=== PATIENT | male | born 1955 | race Caucasian/White ===

== ENCOUNTER 2022-04-28 11:03 | Emergency (ER) | payer MEDICARE, MEDICAID, SELFPAY ==
[2022-04-28] VITALS (8 sets, daily range): BP systolic 176–234; BP diastolic 79–116; PULSE 79–84; RESP 18–20; TEMP 36.6–36.8; O2SAT 95–97; BMI 27.3
[2022-04-28 12:59] LABS: Basophils # 0.1 K/mm3 (0-0.2); Basophils % 0.8 % (0.1-2.0); Eosinophils # 0.2 K/mm3 (0.0-0.4); Eosinophils % 2.7 % (0.1-12.0); Hematocrit 47.5 % (42.0-52.0); Hemoglobin 16.4 g/dL (14.1-18.0); Lymphocytes # 1.4 K/mm3 (0.7-4.5); Lymphocytes % 17.2 % (10-50); Mean Corpuscular HGB Conc 34.5 g/dL (31.8-35.4); Mean Corpuscular Hemoglobin 31.4 pg (27.0-31.2); Mean Corpuscular Volume 90.8 fl (80-94); Mean Platelet Volume 8.3 fl (7.4-10.4); Monocytes # 0.4 K/mm3 (0.1-1.0); Monocytes % 5.2 % (1.7-9.3); Neutrophils # 5.8 K/mm3 (1.8-7.8); Neutrophils % 74.2 % (37.0-80.0); Platelet Count 271 K/mm3 (142-424); Red Blood Count 5.23 M/mm3 (4.60-6.20); Red Cell Distribution Width 13.6 % (11.5-17.5); White Blood Count 7.8 K/mm3 (4.8-10.8)
[2022-04-28 13:00] LABS: Chloride 105 mmol/L (98-107)
[2022-04-28 13:01] LABS: Potassium 3.7 mmoL/L (3.5-5.1); Sodium 142 mmol/L (136-145)
[2022-04-28 13:04] LABS: Anion Gap 8.7 mEq/L (5-15); Blood Urea Nitrogen 19 mg/dl (9-20); Calcium 8.8 mg/dl (8.4-10.2); Carbon Dioxide 32 mmol/L (22.0-30.0); Estimated Glomerular Filt Rate 67 ml/min (>60); GFR (African American) 81 ML/MIN (>60); Glucose 148 mg/dl (74-100)
--- NOTE | 2022-04-28 13:14 | CT_ITS ---
PROCEDURE INFORMATION: Exam: CT Abdomen And Pelvis With Contrast Exam date and time: 04/28/2022 1:32 PM Age: 66 years old Clinical indication: Abdominal pain; Generalized; Patient HX: Bladder retention TECHNIQUE: Imaging protocol: Computed tomography of the abdomen and pelvis with contrast. Radiation optimization: All CT scans at this facility use at least one of these dose optimization techniques: automated exposure control; mA and/or kV adjustment per patient size (includes targeted exams where dose is matched to clinical indication); or iterative reconstruction. Contrast material: ISOVUE; Contrast volume: 75 ml; Contrast route: IV; COMPARISON: No relevant prior studies available. FINDINGS: Liver: Normal. No mass. Gallbladder and bile ducts: Surgically absent gallbladder. Pancreas: Normal. No ductal dilation. Spleen: Normal. No splenomegaly. Adrenal glands: Normal. No mass. Kidneys and ureters: 4.2 cm simple right renal cortical cyst. Indeterminate exophytic focus measuring 1.6 cm in right kidney. Otherwise, grossly unremarkable kidneys. Stomach and bowel: U scattered colonic diverticula. Appendix: No evidence of appendicitis. Intraperitoneal space: Unremarkable. No free air. No significant fluid collection. Vasculature: Atherosclerotic calcification of aortoiliac arteries. Lymph nodes: Unremarkable. No enlarged lymph nodes. Urinary bladder: Unremarkable as visualized. Reproductive: Unremarkable as visualized. Bones/joints: Unremarkable. No acute fracture. Soft tissues: Unremarkable. Other findings: Visualized thorax grossly unremarkable. IMPRESSION: No acute intra abdominopelvic findings identified. Indeterminate exophytic focus in right kidney, although possibly representing small cysts. Consider nonurgent sonographic evaluation. Colonic diverticulosis. Otherwise, grossly unremarkable study. COMMENTS: Consistent with the [employer]'s Incidental Findings Committee white paper (J Am Rk Radiol 2018): Any incidental renal lesion less than 1 cm or classified as too small to characterize, or any incidental cystic renal lesion characterized as simple-appearing, is likely benign. No follow-up imaging is recommended for these lesions per consensus recommendations based on imaging criteria.
--- NOTE | 2022-04-28 13:20 | PC.NURSE ---
bladder scanned pt 107ml noted in bladder
[2022-04-28 13:28] LABS: Alanine Aminotransferase 25 U/L (12-78); Albumin Level 4.1 g/dl (3.5-5.0); Alkaline Phosphatase 82 U/L (38-126); Aspartate Amino Transferase 33 U/L (17-59); Bilirubin,Direct 0.3 mg/dl (0.0-0.4); Bilirubin,Indirect 0.4 mg/dL (0.0-0.9); Bilirubin,Total 0.7 mg/dl (0.2-1.3); Bilirubin,Unconjugated 0.3 mg/dL (0.0-1.1); Total Protein,Serum 7.1 g/dl (6.3-8.2)
[2022-04-28 13:56] LABS: Microscopic, Urine URINE MICROSCOPIC (MICROSCOPIC)
[2022-04-28 14:08] LABS: Appearance,Urine CLEAR (Clear); Bilirubin,Urine Negative (Negative); Blood, Urine Negative (Negative); Color,Urine YELLOW (Yellow); Glucose,Urine (UA) Negative (Negative); Ketones,Urine Negative (Negative); Leukocyte Esterase,Urine Negative (Negative); Nitrate,Urine Negative (Negative); PH,Urine 5.5 (5.0-8.5); Protein,Urine Negative (Negative); Specific Gravity, Urine <= 1.005 (1.005-1.030)
[2022-04-28 14:20] LABS: Bacteria,Urine Trace /lpf; Squamous Epithelial Cell,Urine Occasional #/hpf (0-5); WBC,Urine Occasional #/hpf (0-3)
--- NOTE | 2022-04-28 14:21 | HMH.EDGENADL ---
Discharge Plan Disposition Patient Disposition: Home, Self-Care Condition: Good Referrals Follow up/Referrals: Chris Reis [Primary Care Provider] - See instructions Activity Restrictions/Add. Instructions Additional Instructions/Restrictions: All medication as directed. Follow-up PCP soon as possible. Return to ER for fever, chest pain, shortness of breath Clinical Impressions Clinical Impression: Chronic pain Instructions Patient Instructions: DI for Chronic Pain -- Adult Discharge ED Provider: Molina Marie General Adult HPI General Chief complaint: PAIN Stated complaint: trouble walking, kidney pain Time Seen by Provider: 04/28/22 11:44 Mode of Arrival: Wheelchair Source of Information: Patient and Spouse Limitations: No Limitations Description of Symptoms (Recalled from ER Triage Doc. by RN): c/o pelvic and lower back pain, States he has a hard time fully urinating and his urine is dark and has a bad odor, states this has been going on for 30 + years but the last 3 days it has gotten worse. History of Present Illness HPI narrative: 66yo M presents to the emergency department secondary to left greater than right pelvic pain. He reports he has a hard time urinating with dark urine and a foul odor. Ports this is been ongoing for greater than 30 years but is worsened in the past 3 days. Denies fever, fall, trauma, heavy lifting. Reports he was seen at [facility] and they did nothing for him. Related Data Allergies Allergy/AdvReac Type Severity Reaction Status Date / Time No Known Allergies Allergy Verified 04/28/22 14:18 [facility] Disclaimer: The information contained in this section may have been updated after the patient was seen, as this information can be updated by other users. Social History Smoking Status: Unknown if ever smoked alcohol intake: former current occupational status: unemployed Travel in the last 8 weeks: None ROS Obtained: Yes Systems reviewed as appropriate & no additional complaints except as documented Physical Exam General General appearance: alert and in no apparent distress Head Head exam: atraumatic Eye Eye exam: Present normal appearance Neck Neck exam: Present normal inspection and full ROM Chest Chest inspection: Present normal inspection Respiratory Respiratory exam: Present normal lung sounds bilaterally and respiratory distress Cardiovascular Cardiovascular exam: Present regular rate and normal rhythm Abdominal Exam Abdominal exam: Present soft and normal bowel sounds; Absent distention, tenderness, guarding, rebound or rigidity Extremities Exam Extremities exam: Present normal inspection and normal capillary refill Back Exam Back exam: Present normal inspection Neurological Exam Neurological exam: Present alert, oriented X3 and CN II-XII intact Psychiatric Psychiatric exam: Present normal affect Skin Skin exam: Present warm and dry Medical Decision Making Medical Records Medical records reviewed: Yes I reviewed the patient's medical records. Noe Inquiry Pt receiving controlled substance: No Noe was queried for this patient: No Vital Signs: 04/28/22 11:04 04/28/22 13:25 Temperature 97.8 F Temperature Source Oral Pulse Rate [Left Radial] 81 Respiratory Rate 18 Blood Pressure 220/116 H Blood Pressure [Right Arm] 176/109 H Blood Pressure Mean [Right Arm] 131 Blood Pressure Source [Right Arm] Automatic Cuff Blood Pressure Position [Right Arm] Sitting 02 Sat by Pulse Oximetry 96 Oxygen Delivery Method Room Air Lab Data Lab results reviewed: Yes I reviewed the patient's lab results. Lab Results 04/28/22 12:40: WBC 7.8, RBC 5.23, Hgb 16.4, Hct 47.5, MCV 90.8, MCH 31.4 H, MCHC 34.5, RDW 13.6, Plt Count 271, MPV 8.3, Neut % (Auto) 74.2, Lymph % (Auto) 17.2, [place] % (Auto) 5.2, Eos % (Auto) 2.7, Baso % (Auto) 0.8, Neut # (Auto) 5.8, Lymph # (Auto) 1.4, [place] # (A
== END 2022-04-28 15:31 | disposition home or self-care (01) ==
PROVIDERS: Emergency Provider Family Medicine; PCP Family Medicine
DX: R10.2 Pelvic and perineal pain (principal); M54.50 Low back pain, unspecified; G89.29 Other chronic pain
CPT/HCPCS: 74177; 80048; 80076; 81001; 85025; 99285; Q9967

== ENCOUNTER 2022-12-25 11:04 | Emergency (ER) | payer MEDICARE, MEDICAID, SELFPAY ==
--- NOTE | 2022-12-25 11:14 | ECG_ITS ---
APPROVED REPORT Exam: Resting ECG HR:84 bpm ECG Measurements Heart Rate 84 AXES NH 184 P 40 QRSd 98 QRS -20 QT 386 T 64 QTc 427 Conclusion SINUS RHYTHM WITH OCCASIONAL ECTOPIC PREMATURE COMPLEXES NONSPECIFIC T-WAVE ABNORMALITY BORDERLINE ECG UNCONFIRMED REPORT Electronically signed by : Jam Son MD 12/25/2022 19:56:20
[2022-12-25 11:20] VITALS: BP 222/111; PULSE 70; RESP 20; TEMP 36.8; O2SAT 96; BMI 30.5
[2022-12-25 11:30] LABS: Microscopic, Urine URINE MICROSCOPIC (MICROSCOPIC)
[2022-12-25 11:31] LABS: Appearance,Urine CLEAR (Clear); Bilirubin,Urine Negative (Negative); Blood, Urine TRACE-I (Negative); Color,Urine YELLOW (Yellow); Glucose,Urine (UA) Negative (Negative); Ketones,Urine Negative (Negative); Leukocyte Esterase,Urine Negative (Negative); Nitrate,Urine Negative (Negative); Protein,Urine Negative (Negative); Specific Gravity, Urine >= 1.030 (1.005-1.030); Urobilinogen,Urine 0.2 EU/dl (0.2)
[2022-12-25 11:44] LABS: Barbiturates Screen,Urine Negative ng/ml (<200)
[2022-12-25 11:45] LABS: Amphetamine/Metha Screen,Urine Negative ng/ml (<1000); Benzodiazepines Screen,Urine Negative ng/ml (<200)
[2022-12-25 11:46] LABS: Methadone Screen,Urine Negative ng/ml (<300)
[2022-12-25 11:47] LABS: Cannabinoid Screen,Urine Positive ng/ml (<50); Cocaine Screen,Urine Negative ng/ml (<300)
[2022-12-25 11:48] LABS: Opiate Screen,Urine Negative ng/ml (<300); Phencyclidine Screen,Urine Negative ng/ml (<25)
[2022-12-25 11:51] LABS: Amorphous Sediment,Urine 1+ /lpf; Bacteria,Urine Trace /lpf; Mucus,Urine 3+ /lpf; RBC,Urine Occasional #/hpf (0-3); WBC,Urine Occasional #/hpf (0-3)
--- NOTE | 2022-12-25 11:54 | CT_ITS ---
FINAL REPORT TECHNIQUE: multiple axial CT images were performed from the foramen magnum to the vertex without enhancement. CLINICAL HISTORY: AMS FINDINGS: There is localized encephalomalacia in the inferior left cerebellar hemisphere. There is [id number] atrophy. There is patchy decreased attenuation in the deep white matter bilaterally. There is a curvilinear vascular structure in the deep white matter of the right frontal lobe and along the interhemispheric falx which appears to represent a draining vein. There is no evidence of hemorrhage. No masses are identified. No extra-axial fluid is seen. The sinuses are normal. IMPRESSION: Encephalomalacia in the inferior left cerebellar hemisphere. Chronic microvascular ischemic changes. Draining vein in the right frontal white matter along the interhemispheric falx which may be related to underlying venous angioma or AVM. Recommend pre and post infusion MRI Reviewed, Interpreted and Dictated by Roni Finney MD Transcribed by Mary Noble Authenticated and [facility]
--- NOTE | 2022-12-25 11:56 | HMH.EDGENADL ---
Discharge Plan Disposition Patient Disposition: Home, Self-Care Referrals Follow up/Referrals: Provider,Referral, [Primary Care Provider] - See instructions Activity Restrictions/Add. Instructions Additional Instructions/Restrictions: No evidence of diabetes which is her main concern today please follow-up with your primary care doctor with one of the primary doctors from the list of physicians that we gave you today in the emergency department. No emergent medical condition identified. Clinical Impressions Clinical Impression: Fatigue Instructions Patient Instructions: DI for Altered Mental Status Discharge ED Provider: Geno Bell General Adult HPI General Chief complaint: Altered Mental Status Stated complaint: lightheaded, dizzy, confused Time Seen by Provider: 12/25/22 11:40 Mode of Arrival: Ambulatory Source of Information: Patient Limitations: Altered Mental Status Description of Symptoms (Recalled from ER Triage Doc. by RN): pt to ed c/o ams, weakness and lower abd pain. pt reports a recent umbilical hernia repair. pt states he doesn't know how long this has been going on. History of Present Illness HPI narrative: Patient is a 67-year-old male who is a very poor historian presents today with multiple complaints very difficult to ascertain from historical standpoint. He is accompanied by his girlfriend. He states that his girlfriend made him come to the emergency department because she states he has been in speaking out of his mind and he states that he has been dizzy headed and foggy headed . When asked to articulate further what this meant he did not have any focal neurologic deficits he does not have a significant headache no fevers or chills states he had normal coordination and vision. He also stated that he has had chronic perineal discomfort and he supposed to follow-up with a surgeon regarding hernia repair surgeries in the past. Denies any acute pain in that location at the moment. When his girlfriend entered the room I had a discussion with her about why he came as he stated that she made him, she states that he is the one he wanted to come today. She states that he has been fixated on a recent visit that he had to the surgeon where he was found to have glucosuria and he is concerned that he has diabetes. She claims that this is the main reason that he wanted to come today. They both agree that he has been fatigued more than normal recently. He denies any polyuria polydipsia or weight loss. Related Data Allergies Allergy/AdvReac Type Severity Reaction Status Date / Time No Known Allergies Allergy Verified 04/28/22 14:18 [facility] Disclaimer: The information contained in this section may have been updated after the patient was seen, as this information can be updated by other users. Social History (Updated 04/28/22 @ 14:27 by Molina Marie DO) Smoking Status: Never smoker alcohol intake: former current occupational status: unemployed Travel in the last 8 weeks: None ROS Obtained: Yes All systems reviewed & no additional complaints except as documented Physical Exam General General appearance: alert and in no apparent distress Respiratory Respiratory exam: Present normal lung sounds bilaterally; Absent respiratory distress Cardiovascular Cardiovascular exam: Present regular rate; Absent tachycardia Neurological Exam Neurological exam: Present alert, oriented X3 and normal gait; Absent CN II-XII intact or motor sensory deficit Medical Decision Making Noe Inquiry Pt receiving controlled substance: No Vital Signs: 12/25/22 11:20 Temperature 98.3 F Temperature Source Oral Pulse Rate [Left Radial] 70 Respiratory Rate 20 Blood Pressure [Right Arm] 222/111 H Blood Pressure Mean [Right Arm] 148 02 Sat by Pulse Oximetry 96 Oxygen Delivery Method Room Air Lab Data Lab results reviewed: Yes I reviewed the patient's lab results. Lab Results 12/25/22 1
[2022-12-25 12:03] LABS: Basophils # 0.1 K/mm3 (0-0.2); Basophils % 0.7 % (0.1-2.0); Eosinophils # 0.2 K/mm3 (0.0-0.4); Eosinophils % 2.8 % (0.1-12.0); Hematocrit 50.4 % (42.0-52.0); Hemoglobin 16.5 g/dL (14.1-18.0); Lymphocytes # 1.4 K/mm3 (0.7-4.5); Mean Corpuscular HGB Conc 32.7 g/dL (31.8-35.4); Mean Corpuscular Hemoglobin 29.8 pg (27.0-31.2); Mean Corpuscular Volume 91.2 fl (80-94); Mean Platelet Volume 8.7 fl (7.4-10.4); Monocytes # 0.4 K/mm3 (0.1-1.0); Monocytes % 5.4 % (1.7-9.3); Neutrophils # 5.9 K/mm3 (1.8-7.8); Platelet Count 201 K/mm3 (142-424); Red Blood Count 5.53 M/mm3 (4.60-6.20); Red Cell Distribution Width 13.8 % (11.5-17.5); White Blood Count 7.9 K/mm3 (4.8-10.8)
[2022-12-25 12:04] LABS: Chloride 104 mmol/L (98-107)
[2022-12-25 12:05] LABS: Potassium 3.9 mmoL/L (3.5-5.1); Sodium 144 mmol/L (136-145)
[2022-12-25 12:07] LABS: Alanine Aminotransferase 34 U/L (12-78); Alkaline Phosphatase 91 U/L (38-126); Aspartate Amino Transferase 29 U/L (17-59); Bilirubin,Total 0.5 mg/dl (0.2-1.3); Blood Urea Nitrogen 20 mg/dl (9-20); Creatinine Clearance Estimated 91 mL/min (50-200); Estimated Glomerular Filt Rate 75 ml/min (>60); GFR (African American) 90 ML/MIN (>60)
[2022-12-25 12:08] LABS: Albumin Level 4.1 g/dl (3.5-5.0); Albumin/Globulin Ratio 1.3 (1.1-1.8); Anion Gap 11.9 mEq/L (5-15); Calcium 9.4 mg/dl (8.4-10.2); Carbon Dioxide 32 mmol/L (22.0-30.0); Globulin 3.1 g/dL (1.3-3.2); Glucose 118 mg/dl (74-100); Total Protein,Serum 7.2 g/dl (6.3-8.2)
[2022-12-25 12:20] LABS: NT Pro Brain Natriuretic Pep. 480 pg/mL (0-125)
[2022-12-25 12:23] LABS: Troponin I < 0.01 ng/ml (0.00-0.034)
[2022-12-25 12:29] LABS: Hemoglobin A1C 5.5 % (4.0-6.0)
[2022-12-25 12:39] LABS: Thyroid Stimulating Hormone 1.04 uIU/mL (0.465-4.68)
[2022-12-25 13:23] VITALS: BP 199/98; PULSE 79; RESP 20; TEMP 36.8; O2SAT 99
== END 2022-12-25 13:24 | disposition home or self-care (01) ==
PROVIDERS: Emergency Provider Student in an Organized Health Care Education/Training Program
DX: R10.30 Lower abdominal pain, unspecified (principal); R41.82 Altered mental status, unspecified; R42 Dizziness and giddiness; R53.1 Weakness; I49.3 Ventricular premature depolarization
CPT/HCPCS: 70450; 80053; 80305; 81001; 83036; 83880; 84443; 84484; 85025; 93005; 96360; 99285

== ENCOUNTER → 2023-01-14 12:47 | Outpatient (CLI) | payer MEDICARE, MEDICAID, SELFPAY ==
--- NOTE | 2023-01-14 12:59 | US_ITS ---
FINAL REPORT CLINICAL HISTORY: RT KIDNEY MASS COMPARISON: None FINDINGS: RENAL ULTRASOUND Ultrasound images of the kidneys were obtained. Limited images of the liver parenchyma demonstrates normal echogenicity. The right kidney measures 11.1 cm in length. The left kidney measures 11.0 cm in length. There is a right renal mass measuring 4.4 cm consistent with a cyst. There is an additional smaller right renal cyst measuring 1.4 cm. There is a left renal cyst measuring 1.4 cm. IMPRESSION: Bilateral renal cysts. Reviewed, Interpreted and Dictated by Margarito Alba III, MD Transcribed by Radha Delcid Authenticated and [facility]
== END ==
PROVIDERS: PCP Family Medicine; Visit Provider Urology
DX: N28.89 Other specified disorders of kidney and ureter (principal)
CPT/HCPCS: 76770

== ENCOUNTER 2023-07-15 14:24 | Emergency (ER) | payer MEDICARE, MEDICAID, SELFPAY ==
[2023-07-15 14:25] VITALS: BP 193/102; PULSE 89; RESP 18; TEMP 36.7; O2SAT 95; BMI 21.9
--- NOTE | 2023-07-15 14:31 | ED_ITS ---
Discharge Plan Disposition Patient Disposition: Home, Self-Care Condition: Good Chief Complaint: Extremity Injury, Upper Referrals Follow up/Referrals: Chris Reis [Primary Care Provider] - See instructions Activity Restrictions/Add. Instructions Additional Instructions/Restrictions: Please call make an appointment with your primary care physician for blood pressure recheck and management. You can take Tylenol and alternating with Motrin every 4 hours as needed for pain. Return to ER for any worsening or change in your symptoms. Clinical Impressions Clinical Impression: Contusion of arm, right, multiple sites, Hypertension, uncontrolled Discharge ED Provider: Fareed Nicole General Adult HPI General Chief complaint: Extremity Injury, Upper Stated complaint: AO right arm poss broke Time Seen by Provider: 07/15/23 14:26 History of Present Illness HPI narrative: Patient presents for evaluation of right upper extremity injury. Patient states he fell forward approximately 4 to 5 days ago landing in a diving position with his right arm bent underneath him. Patient is somewhat difficult historian due to him being impaired at that time. Patient reports that he has had pain at the elbow forearm wrist and hand that is increased over the last 4 days. He denies striking his head loss of consciousness or any other injury. Related Data Allergies Allergy/AdvReac Type Severity Reaction Status Date / Time No Known Allergies Allergy Verified 04/28/22 14:18 [facility] Disclaimer: The information contained in this section may have been updated after the patient was seen, as this information can be updated by other users. Social History (Updated 04/28/22 @ 14:27 by Molina Marie DO) Smoking Status: Current every day smoker alcohol intake: former current occupational status: unemployed Travel in the last 8 weeks: None ROS Obtained: Yes Systems reviewed as appropriate & no additional complaints except as documented Physical Exam General General appearance: alert and in no apparent distress Head Head exam: atraumatic and normal inspection Eye Eye exam: Present normal appearance and EOMI Neck Neck exam: Present normal inspection and full ROM Chest Chest inspection: Present normal inspection and symmetric chest wall rise Respiratory Respiratory exam: Present normal lung sounds bilaterally; Absent respiratory distress Cardiovascular Cardiovascular exam: Present regular rate and normal rhythm Abdominal Exam Abdominal exam: Present soft and normal bowel sounds; Absent tenderness Neurological Exam Neurological exam: Present alert and oriented X3 Psychiatric Psychiatric exam: Present normal affect and normal mood Skin Skin exam: Present warm, dry and normal color (Except for mentioned below) Other Other exam information: Patient has edema and ecchymosis about the olecranon. Patient has difficulty with flexion extension pronation supination. Patient is tender to palpation at the wrist and the hand. Manager Of Employee Relations of the hand is affected by pain but does have range of motion. He is neurovascularly intact distally. Do not feel any bony deformities through the length of the right upper extremity. Medical Decision Making Medical Records Medical records reviewed: Yes I reviewed the patient's medical records. Noe Inquiry Pt receiving controlled substance: No Vital Signs: 07/15/23 14:25 Temperature 98.1 F Temperature Source Oral Pulse Rate [Right] 89 Respiratory Rate 18 Blood Pressure [Right Arm] 193/102 H Blood Pressure Mean [Right Arm] 132 Blood Pressure Source [Right Arm] Automatic Cuff 02 Sat by Pulse Oximetry 95 Oxygen Delivery Method Room Air Orders (Tests/Meds): ED MEDICATIONS Discontinued Medications Generic Name Dose Route Start Last Admin Trade Name Freq PRN Reason Stop Dose Admin Acetaminophen 1,000 mg 07/15/23 14:39 07/15/23 15:07 Acetaminophen 500mg Tab PO 07/15/23 14:40 1,000 mg ONCE ONE Administration Ketorolac Tromethamine 30 mg 07/15/23 14:39 07/15/23 15:07 Ketorolac 30mg/Ml Vial IM 07/15/23 14:40 30 mg ONCE ONE Administration Lisinopril 40 mg 07/15/23 15:31 07/15/23 16:00 Lisinopril 20mg Tablet PO 07/15/23 15:32 40 mg ONCE ONE Administration ORDERS Category Date Time Status Elbow XR right minimum 3 views [XR elbow RT min 3V] Exams 07/15/23 14:32 Completed Stat Humerus XR right [XR humerus RT] Stat Exams 07/15/23 14:32 Taken Wrist XR right minimum 3 views [XR wrist RT min 3V] Exams 07/15/23 14:32 Taken Stat XR forearm RT 2V Stat Exams 07/15/23 14:32 Completed XR hand RT min 3V Stat Exams 07/15/23 14:32 Completed Medical Decision Narrative: In summary patient is a 67-year-old male who presents to the emergency department for evaluation of injury to the right upper extremity. Patient is hypertensive with a blood pressure of 193/102 but satting at 95% on room air with a respiratory rate of 18 pulse 89 upon arrival, afebrile. Patient states he is not taking his blood pressure medication in a couple of days . Physical exam shows limited range of motion due to pain of the right upper extremity at the elbow wrist and hand. There is ecchymosis and edema at the olecranon. He is neurovascular intact distally. I do not feel any bony deformities along the length of the entire right upper extremity.. Differential diagnosis includes contusion versus sprain versus fracture. In regards to his blood pressure will give the now dose of his home lisinopril initial workup will be conducted with plain film x-rays. Initial interventions include Toradol and Tylenol. Initial workup reviewed by me and my informal read shows degenerative changes with no acute bony fracture and radiologist read concurs. Upon repeat evaluation patient reports moderate improvement in his discomfort. Given this the patient is appropriate for discharge home with follow-up with his PCP this week for blood pressure recheck Critical Care Critical Care Time Critical Care Time: No
--- NOTE | 2023-07-15 14:32 | XR_ITS ---
FINAL REPORT CLINICAL HISTORY: Right arm pain after an injury FINDINGS: RIGHT FOREARM 2 views were obtained. There is mild irregularity of the distal radius which may represent a chronic fracture. No definite acute fracture is identified. There are mild degenerative changes. There is no soft tissue abnormality. IMPRESSION: No definite acute fracture is identified. Reviewed, Interpreted and Dictated by Margarito Alba III, MD Transcribed by Christine Lundberg Authenticated and [facility]
--- NOTE | 2023-07-15 14:32 | XR_ITS ---
FINAL REPORT CLINICAL HISTORY: Right elbow pain after an injury FINDINGS: RIGHT ELBOW 3 views were obtained. There is no acute fracture or dislocation. There are mild degenerative changes.. There is no soft tissue abnormality. IMPRESSION: No acute bony abnormality. Reviewed, Interpreted and Dictated by Margarito Alba III, MD Transcribed by Christine Lundberg Authenticated and [facility]
--- NOTE | 2023-07-15 14:32 | XR_ITS ---
FINAL REPORT CLINICAL HISTORY: Right wrist pain after an injury FINDINGS: RIGHT WRIST 3 views were obtained. No acute fracture is identified. Again noted is mild irregularity of the distal radius which may represent a chronic fracture. There is a chronic calcification adjacent to the distal pole of the scaphoid. There is no soft tissue abnormality. IMPRESSION: No acute bony abnormality. Reviewed, Interpreted and Dictated by Margarito Alba III, MD Transcribed by Christine Lundberg Authenticated and [facility]
--- NOTE | 2023-07-15 14:32 | XR_ITS ---
FINAL REPORT CLINICAL HISTORY: Right arm pain after an injury FINDINGS: RIGHT HUMERUS 2 views were obtained. There is deformity of the proximal humerus favored to represent a chronic fracture. No acute fracture is identified. There are moderate degenerative changes of the acromioclavicular joint and the glenohumeral joint. There is no soft tissue abnormality. IMPRESSION: No acute bony abnormality. Reviewed, Interpreted and Dictated by Margarito Alba III, MD Transcribed by Christine Lundberg Authenticated and [facility]
--- NOTE | 2023-07-15 14:32 | XR_ITS ---
FINAL REPORT CLINICAL HISTORY: Right hand pain after an injury FINDINGS: RIGHT HAND Three views demonstrate no acute fracture or dislocation. Again noted is an irregularity of the distal radius of uncertain significance which may represent a chronic fracture. Mild degenerative changes are seen. There is a chronic calcification adjacent to the distal pole of the scaphoid. IMPRESSION: No acute bony abnormality. Reviewed, Interpreted and Dictated by Margarito Alba III, MD Transcribed by Christine Lundberg Authenticated and [facility]
--- NOTE | 2023-07-15 14:43 | PC.NURSE ---
Pt gone to RAD via wheelchair
[2023-07-15] MEDS: KETOROLAC 30MG/ML VIAL 30 MG IM (15:07)
[2023-07-15] MEDS: ACETAMINOPHEN 500MG TAB 1000 MG PO (15:07)
[2023-07-15] MEDS: LISINOPRIL 20MG TABLET 40 MG PO (16:00)
[2023-07-15 16:47] VITALS: BP 179/109; PULSE 76; RESP 18; TEMP 36.6; O2SAT 98
[2023-07-15 16:52] VITALS: BP 168/99; PULSE 89; RESP 16; TEMP 36.8; O2SAT 98
== END 2023-07-15 16:50 | disposition home or self-care (01) ==
PROVIDERS: Emergency Provider Student in an Organized Health Care Education/Training Program; PCP Family Medicine
DX: S40.021A Contusion of right upper arm, initial encounter (principal); M79.601 Pain in right arm; I10 Essential (primary) hypertension; F17.210 Nicotine dependence, cigarettes, uncomplicated; W18.30XA Fall on same level, unspecified, initial encounter
CPT/HCPCS: 73060; 73080; 73090; 73110; 73130; 96372; 99284

== ENCOUNTER 2023-12-07 08:53 | Emergency (ER) | payer MEDICARE, MEDICAID, SELFPAY ==
--- NOTE | 2023-12-07 09:05 | CT_ITS ---
PROCEDURE INFORMATION: Exam: CT Cervical Spine Without Contrast Exam date and time: 12/07/2023 9:30 AM Age: 68 years old Clinical indication: Injury or trauma; Fall; Blunt trauma; Additional info: Fall >65 TECHNIQUE: Imaging protocol: Computed tomography of the cervical spine without contrast. Radiation optimization: All CT scans at this facility use at least one of these dose optimization techniques: automated exposure control; mA and/or kV adjustment per patient size (includes targeted exams where dose is matched to clinical indication); or iterative reconstruction. COMPARISON: CT HEAD/BRAIN WO CON 12/07/2023 9:30 AM FINDINGS: Bones/joints: No acute fracture. Normal alignment. There is diffuse bulky anterior osteophyte formation. There is multilevel spinal canal stenosis with moderate stenosis at C3-C4 secondary to a moderate-sized central disc osteophyte complex. Lungs: Lung apices are normal. Soft tissues: Unremarkable. IMPRESSION: No acute findings.
--- NOTE | 2023-12-07 09:05 | CT_ITS ---
PROCEDURE INFORMATION: Exam: CT Head Without Contrast Exam date and time: 12/07/2023 9:30 AM Age: 68 years old Clinical indication: Injury or trauma; Fall; Blunt trauma (contusions or hematomas); Additional info: Fall >65 TECHNIQUE: Imaging protocol: Computed tomography of the head without contrast. Radiation optimization: All CT scans at this facility use at least one of these dose optimization techniques: automated exposure control; mA and/or kV adjustment per patient size (includes targeted exams where dose is matched to clinical indication); or iterative reconstruction. COMPARISON: CT HEAD/BRAIN WO CON 12/25/2022 12:24 PM FINDINGS: Brain: There is mild to moderate small vessel disease. There is an old left cerebellar infarct. There is a stable enlarged vessel coursing along the medial right frontal lobe in falx. There is no evidence of acute parenchymal hemorrhage, extra-axial collection, or acute infarction. There is no mass effect, midline shift, or downward herniation. Cerebral ventricles: No ventriculomegaly. Paranasal sinuses: Visualized sinuses are unremarkable. No fluid levels. Mastoid air cells: Visualized mastoid air cells are well aerated. Bones: Unremarkable. No acute fracture. Soft tissues: Unremarkable. IMPRESSION: 1. Mild to moderate small vessel disease. Old left cerebellar infarct. No evidence of acute intracranial process. 2. Stable vascular malformation.
[2023-12-07 09:06] VITALS: BP 200/98; PULSE 85; RESP 16; TEMP 36.9; O2SAT 96; BMI 31.0
[2023-12-07 09:24] LABS: Basophils % 0.5 % (0.1-2.0); Eosinophils # 0.1 K/mm3 (0.0-0.4); Eosinophils % 1.9 % (0.1-12.0); Hematocrit 49.8 % (42.0-52.0); Lymphocytes % 13.8 % (10-50); Mean Corpuscular HGB Conc 32.2 g/dL (31.8-35.4); Mean Corpuscular Hemoglobin 30.4 pg (27.0-31.2); Mean Corpuscular Volume 94.3 fl (80-94); Mean Platelet Volume 7.8 fl (7.4-10.4); Monocytes # 0.5 K/mm3 (0.1-1.0); Monocytes % 6.4 % (1.7-9.3); Neutrophils # 5.4 K/mm3 (1.8-7.8); Neutrophils % 77.3 % (37.0-80.0); Platelet Count 257 K/mm3 (142-424); Red Blood Count 5.28 M/mm3 (4.60-6.20); Red Cell Distribution Width 13.6 % (11.5-17.5)
[2023-12-07 09:26] LABS: Albumin Level 4.1 g/dl (3.5-5.0); Chloride 105 mmol/L (98-107); Potassium 3.7 mmoL/L (3.5-5.1); Sodium 139 mmol/L (136-145)
--- NOTE | 2023-12-07 09:26 | ED_ITS ---
Discharge Plan Disposition Patient Disposition: Home, Self-Care Condition: Good Prescriptions Prescriptions: New indomethacin 50 mg capsule 50 mg PO TID 5 Days Qty: 15 0RF Rx Instructions: administer with food or milk oxycodone 5 mg tablet 5 mg PO Q8H PRN (Reason: pain) Qty: 12 0RF Referrals Follow up/Referrals: Chris Reis [Primary Care Provider] - See instructions Activity Restrictions/Add. Instructions Additional Instructions/Restrictions: You were evaluated in the emergency department today and diagnosed with a flareup of gout, for which we are prescribed prescribing you an inflammatory medication and pain medication. Use caution when taking narcotic pain medication. Do not drink or take other sedating medications while taking narcotic pain medication. You may also take Tylenol every 4-6 hours at home in addition to these medications as needed for pain. Follow-up closely with your primary care provider over the next 48 hours for reassessment. Return to the emergency department for new or worsening symptoms. During this visit, you were found to have high blood pressure that is not very well-controlled. Please keep an eye on this and have your primary care provider adjust medications as necessary. CT imaging did show an old prior stroke as well as some chronic small vessel changes to your brain, which happens as you age if you have issues with vascular disease. You also have a stable venous malformation of your brain that is unchanged from prior imaging. Clinical Impressions Clinical Impression: Gout flare, Hypertension, uncontrolled Instructions Patient Instructions: DI for Gout Print Language Print Language: Spanish Discharge ED Provider: Miesha Gomez General Adult HPI General Chief complaint: Extremity Problem,Nontraumatic Stated complaint: bilateral leg pain Time Seen by Provider: 12/07/23 08:55 Mode of Arrival: Wheelchair Source of Information: Patient and Significant Other Limitations: No Limitations Description of Symptoms (Recalled from ER Triage Doc. by RN): pt c/o bilateral foot pain. pt states the L is worse. pt states he is having a gout flare up. pt L foot is edamatous and red. pts pain is 6/10. pt reports he fell a few days ago trying to get out of bed, he has no injuries or pain from the fall. History of Present Illness HPI narrative: This patient is a 68-year-old male with a history of gout, chronic alcohol use, and hypertension presenting to the emergency department for evaluation with concern for redness, pain, and warmth to his great toes of his bilateral feet, left greater than right. Because of this pain, has had difficulty walking and had a fall yesterday morning, at which point EMS had to come and help lift him up. He states that he is having a gout flareup. He has had gout multiple times in the past and this feels the same. No fevers or infectious symptoms to suggest otherwise. No recent traumatic injuries. He did fall, but he states that he did not injure himself during this fall. He did not hit his head or lose consciousness. He does not take any blood thinners. No other concerns noted at this time. He notes he gets gout because he drinks beer and is not on any medications for it at home at this time. Related Data Previous Rx's ?Medication ?Instructions ?Recorded indomethacin 50 mg capsule 50 mg PO TID 5 days #15 caps 12/07/23 oxycodone 5 mg tablet 5 mg PO Q8H PRN pain #12 tabs 12/07/23 Allergies Allergy/AdvReac Type Severity Reaction Status Date / Time No Known Allergies Allergy Verified 12/07/23 09:23 [facility] Disclaimer: The information contained in this section may have been updated after the patient was seen, as this information can be updated by other users. Social History Smoking Status: Current every day smoker alcohol intake: former current occupational status: unemployed Travel in the last 8 weeks: None ROS Obtained: Yes All systems reviewed & no additional complaints except as documented Physical Exam General General appearance: alert and in no apparent distress Head Head exam: atraumatic and normocephalic Eye Eye exam: Present normal appearance, PERRL and EOMI ENT ENT exam: Present normal exam, normal oropharynx, mucous membranes moist and normal external ear exam Neck Neck exam: Present normal inspection, full ROM and trachea midline; Absent tenderness Chest Chest inspection: Present normal inspection and symmetric chest wall rise; Absent tenderness Respiratory Respiratory exam: Present normal lung sounds bilaterally; Absent respiratory distress, wheezes, stridor or accessory muscle use Cardiovascular Cardiovascular exam: Present regular rate and normal rhythm Abdominal Exam Abdominal exam: Present soft; Absent distention, tenderness or guarding Extremities Exam Extremities exam: Present full ROM, tenderness, normal capillary refill, edema and other (Redness, warmth, and tenderness to palpation of the first MTP joint of the left foot) Back Exam Back exam: Present normal inspection and full ROM; Absent tenderness Neurological Exam Neurological exam: Present alert, oriented X3, CN II-XII intact and normal gait; Absent motor sensory deficit Psychiatric Psychiatric exam: Present normal affect and normal mood Skin Skin exam: Present warm and dry Medical Decision Making Medical Records Medical records reviewed: Yes I reviewed the patient's medical records. Noe Inquiry Pt receiving controlled substance: Yes Noe was queried for this patient: Yes Risks and benefits of using a controlled substance: were discussed with pt by me Vital Signs: 12/07/23 09:06 12/07/23 09:59 12/07/23 10:25 Temperature 98.4 F 98.0 F Temperature Source Oral Pulse Rate 74 74 Pulse Rate [Left] 85 Respiratory Rate 16 16 Blood Pressure 165/80 H 165/80 H Blood Pressure [Right Arm] 200/98 H Blood Pressure Mean [Right Arm] 132 Blood Pressure Source [Right Arm] Automatic Cuff Blood Pressure Position [Right Arm] Sitting 02 Sat by Pulse Oximetry 96 95 Oxygen Delivery Method Room Air Lab Data Lab results reviewed: Yes I reviewed the patient's lab results. Lab Results 12/07/23 09:13: WBC 7.0, RBC 5.28, Hgb 16.0, Hct 49.8, MCV 94.3 H, MCH 30.4, MCHC 32.2, RDW 13.6, Plt Count 257, MPV 7.8, Neut % (Auto) 77.3, Lymph % (Auto) 13.8, [place] % (Auto) 6.4, Eos % (Auto) 1.9, Baso % (Auto) 0.5, Neut # (Auto) 5.4, Lymph # (Auto) 1.0, [place] # (Auto) 0.5, Eos # (Auto) 0.1, Baso # (Auto) 0.0, Sodium 139, Potassium 3.7, Chloride 105, Carbon Dioxide 30, Anion Gap 7.7, BUN 13, Creatinine 0.90, Estimated Creat Clear 91, Estimated GFR 84, Est GFR ( Amer) 102, Glucose 164 H, Calcium 8.8, Total Bilirubin 1.2, AST 32, ALT 30, Alkaline Phosphatase 76, Total Protein 7.2, Albumin 4.1, Globulin 3.1, Albumin/Globulin Ratio 1.3 12/07/23 09:13 12/07/23 09:13 Orders (Tests/Meds): ED MEDICATIONS Discontinued Medications Generic Name Dose Route Start Last Admin Trade Name Julieta PRN Reason Stop Dose Admin Dexamethasone Sodium Phosphate 10 mg 12/07/23 09:20 12/07/23 09:36 Dexamethasone 4mg/Ml 1ml Vial IV 12/07/23 09:21 10 mg ONCE ONE Administration Ketorolac Tromethamine 30 mg 12/07/23 09:20 12/07/23 09:36 Ketorolac 30mg/Ml Vial IV 12/07/23 09:21 30 mg ONCE ONE Administration Ondansetron HCl 4 mg 12/07/23 09:06 12/07/23 09:36 Ondansetron 4mg Odt SL 12/07/23 09:07 Not Given ONCE ONE Ondansetron HCl 4 mg 12/07/23 09:35 12/07/23 09:36 Ondansetron 4mg/2ml Vial IV 12/07/23 09:36 4 mg ONCE ONE Administration Oxycodone HCl 5 mg 12/07/23 09:06 12/07/23 09:36 Oxycodone 5mg Immediate Release Tablet PO 12/07/23 09:07 5 mg ONCE ONE Administration Oxycodone HCl 5 mg 12/07/23 10:05 12/07/23 10:06 Oxycodone 5mg Immediate Release Tablet PO 12/07/23 10:06 5 mg ONCE ONE Administration ORDERS Category Date Time Status CT cervical spine wo con Stat Cat Scan 12/07/23 09:[address] head/brain wo con Stat Cat Scan 12/07/23 09:05 Completed Complete Blood Count Auto Diff Stat Lab 12/07/23 09:13 Completed Comprehensive Metabolic Panel Stat Lab 12/07/23 09:13 Completed Medical Decision Narrative: In summary, this patient is a 68-year-old male presenting to the Emergency Department for evaluation of redness, warmth, and tenderness to his bilateral toes, left greater than right. Differential diagnoses considered include but are not limited to gout, septic arthritis, cellulitis, traumatic injuries from fall yesterday morning. Ruling out the most morbid conditions drove assessment. It should be noted patient's history includes alcohol abuse and hypertension which are not at goal therapy. This complicates all aspects of care by increasing patient's risk for morbidity. On exam, the patient is resting comfortably in no acute distress with reassuring vital signs on cardiac telemetry with the exception of hypertension. He is afebrile. He does have redness, warmth, and tenderness isolated to the left first MTP joint on clinical exam. He states he had been bothering his right foot as well but that has gone away. No fevers or infectious symptoms. He did have a recent fall but denies traumatic injury associated with this. Workup included CBC, CMP, CT head, CT C-spine without contrast. 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 I also consider joint arthrocentesis of the left first MTP joint, however given patient states that this is consistent with chronic gout flare and denies any new features, I do not feel this is indicated as it likely would not foreign exchange student coordinator. He was given oral oxycodone, IV Toradol, IV dexamethasone, and IV Zofran for symptomatic improvement. I independently interpreted CT scan prior to the radiologist read and noted no obvious acute traumatic injury such as fracture or brain bleed. Please see their read for final interpretation. He does have chronic findings noted including old stroke, chronic vascular changes, and chronic venous malformation. Labs were obtained that demonstrated no acutely concerning abnormalities. On reassessment, patient had good improvement after administration of medications above, but does still have some pain. He was given another dose of oral oxycodone. His blood pressure improved after pain control. At this time, patient was deemed to be appropriate for discharge home with outpatient management of gout and close follow-up with primary care. He was given prescriptions for indomethacin and oxycodone as well as instructions for close outpatient follow-up and strict return precautions. He was discharged after all questions were answered. Critical Care Critical Care Time Critical Care Time: No
[2023-12-07 09:28] LABS: Blood Urea Nitrogen 13 mg/dl (9-20); Creatinine Clearance Estimated 91 mL/min (50-200); Estimated Glomerular Filt Rate 84 ml/min (>60); GFR (African American) 102 ML/MIN (>60)
[2023-12-07 09:29] LABS: Alanine Aminotransferase 30 U/L (12-78); Albumin/Globulin Ratio 1.3 (1.1-1.8); Alkaline Phosphatase 76 U/L (38-126); Anion Gap 7.7 mEq/L (5-15); Aspartate Amino Transferase 32 U/L (17-59); Bilirubin,Total 1.2 mg/dl (0.2-1.3); Calcium 8.8 mg/dl (8.4-10.2); Carbon Dioxide 30 mmol/L (22.0-30.0); Globulin 3.1 g/dL (1.3-3.2); Glucose 164 mg/dl (74-100); Total Protein,Serum 7.2 g/dl (6.3-8.2)
[2023-12-07] MEDS: DEXAMETHASONE 4MG/ML 1ML VIAL 10 MG IV (09:36)
[2023-12-07] MEDS: KETOROLAC 30MG/ML VIAL 30 MG IV (09:36)
[2023-12-07] MEDS: OXYCODONE 5MG IMMEDIATE RELEASE TABLET 5 MG PO ×2 (09:36→10:06)
[2023-12-07] MEDS: ONDANSETRON 4MG/2ML VIAL 4 MG IV (09:36)
[2023-12-07 09:59] VITALS: BP 165/80; PULSE 74; O2SAT 95
--- NOTE | 2023-12-07 10:02 | PC.NURSE ---
Dr. Gomez at to reevaluate pt
[2023-12-07 10:25] VITALS: BP 165/80; PULSE 74; RESP 16; TEMP 36.7
== END 2023-12-07 10:26 | disposition home or self-care (01) ==
PROVIDERS: Emergency Provider Emergency Medicine; PCP Family Medicine
DX: M10.071 Idiopathic gout, right ankle and foot (principal); M10.072 Idiopathic gout, left ankle and foot; I10 Essential (primary) hypertension; Z87.891 Personal history of nicotine dependence
CPT/HCPCS: 70450; 72125; 80053; 85025; 96374; 96375; 99285; J1100; J1885; J2405